=== PATIENT | male | born 1950 | race Caucasian/White ===

== ENCOUNTER 2017-05-27 07:46 | Emergency (ER) | payer BC ==
[~2017-05-27] VITALS: Ht 182.9 cm; Wt 102.2 kg
[2017-05-27 08:43] VITALS: BP 138/97
== END 2017-05-27 08:43 | disposition home or self-care (01) ==
LOC: ED 07:46
DX: I48.91 Unspecified atrial fibrillation (principal); I11.0 Hypertensive heart disease with heart failure; I50.9 Heart failure, unspecified; Z88.0 Allergy status to penicillin; Z88.5 Allergy status to narcotic agent

== ENCOUNTER 2019-03-13 23:44 | Emergency (ER) | payer BC ==
[~2019-03-13] VITALS: Ht 182.9 cm; Wt 113.9 kg
[2019-03-13 23:49] VITALS: Ht 182.9 cm; Wt 113.9 kg
[2019-03-14 00:48] LABS: PLATELET COUNT 121 x10^3mcL (130-400); RED CELL DISTRIBUTION WIDTH 14.7 % (11.5-14.5)
[2019-03-14 01:00] LABS: BAND NEUTROPHIL 2 % (0-10); CALCIUM 8.5 mg/dL (8.5-10.1); CARBON DIOXIDE 28.7 mmol/L (21-32); CHLORIDE SERUM 98 mmol/L (98-107); CREATININE SERUM 1.2 mg/dL (0.7-1.3); GFR1 > 60 mL/min; GLUCOSE SERUM 133 mg/dL (74-106); MONOCYTE 28 % (0-7); POTASSIUM SERUM 4.2 mmol/L (3.5-5.1); SEGMENTED NEUTROPHILS 58 % (37-75); SODIUM SERUM 135 mmol/L (136-145)
[2019-03-14 01:03] LABS: ALKALINE PHOSPHATASE 413 U/L (46-116); ALT/SGPT 74 U/L (16-63); AST/SGOT 37 U/L (15-37); BILIRUBIN TOTAL 0.7 mg/dL (0.20-1.00); PLATELET MORPHOLOGY PLATELETS DECREASED; ovalocyte/elliptocyte 1+; rbc morphology (normal/abnorm) ABNORMAL (NORMAL); schistocyte (helmet cell) 1+
[2019-03-14 01:04] LABS: ALBUMIN 3.2 g/dL (3.4-5.0); TOTAL PROTEIN, SERUM 5.6 g/dL (6.4-8.2)
[2019-03-14 03:28] VITALS: BP 116/50
[2019-03-14] MEDS ORDERED: FUROSEMIDE80 MG PO (23:22)
[2019-03-14] MEDS ORDERED: CHILDREN'S5 MG/5 M1 (23:22)
[2019-03-14] MEDS ORDERED: ALDACTONE25 MG PO (23:23)
[2019-03-14] MEDS ORDERED: OMEPRAZOLE20 M3 PO (23:23)
[2019-03-14] MEDS ORDERED: ALTACE5 MG PO (23:23)
[2019-03-14] MEDS ORDERED: ELIQUIS2.5 MG PO (23:24)
[2019-03-14] MEDS ORDERED: DYMISTA (23:24)
[2019-03-14] MEDS ORDERED: CARVEDILOL6.25 M1 PO (23:24)
== END 2019-03-14 03:28 | disposition home or self-care (01) ==
LOC: ED 23:44
PROVIDERS: Emergency Medicine
DX: G47.30 Sleep apnea, unspecified (principal); I11.0 Hypertensive heart disease with heart failure; I50.9 Heart failure, unspecified; Z88.0 Allergy status to penicillin; Z88.5 Allergy status to narcotic agent
CPT/HCPCS: 36415; 83880; 85378; Q0092; Q9967

== ENCOUNTER 2019-03-14 21:38 | Inpatient (IN) | payer BC ==
[~2019-03-14] VITALS: Ht 182.9 cm; Wt 96.4 kg
[2019-03-14 21:43] VITALS: Ht 182.9 cm; Wt 96.4 kg
--- NOTE | 2019-03-14 21:47 | NUR ---
PT PRESENTS TO ER TODAY WITH C/O OF SOB THAT STARTED APPROX 2 WEEKS AGO. PT IS NO REPORTING SOB AT THIS TIME BUT STATES THAT HE FEELS SHORT OF BREATH WHEN HE TRIES TO GO TO SLEEP. EXPIRATORY WHEEZES HEARD BILATERALLY WITH AUSCULTATION OF THE LUNGS. PT ALSO REPORTING GENERALIZED ABD PAIN THAT, PT STATES THAT PAIN IS CHRONIC DUE TO HIS GASTRITIS. PT DENIES ANY N/V/D. PT DENIES ANY CP. PT IS A/O X4. RESP ARE EQUAL AND UNLABORED. NO ACUTE DISTRESS NOTED.
[2019-03-14 22:16] LABS: CALCIUM 8.5 mg/dL (8.5-10.1); CARBON DIOXIDE 26.5 mmol/L (21-32); CHLORIDE SERUM 95 mmol/L (98-107); CREATININE SERUM 1.1 mg/dL (0.7-1.3); GFR1 > 60 mL/min; GLUCOSE SERUM 108 mg/dL (74-106); POTASSIUM SERUM 4.3 mmol/L (3.5-5.1); SODIUM SERUM 131 mmol/L (136-145)
[2019-03-14 22:21] LABS: ALKALINE PHOSPHATASE 423 U/L (46-116); ALT/SGPT 63 U/L (16-63); AST/SGOT 28 U/L (15-37); BILIRUBIN TOTAL 0.92 mg/dL (0.20-1.00); PLATELET COUNT 137 x10^3mcL (130-400)
[2019-03-14 22:23] LABS: ALBUMIN 3.3 g/dL (3.4-5.0); TOTAL PROTEIN, SERUM 5.8 g/dL (6.4-8.2)
[2019-03-14 22:31] LABS: BAND NEUTROPHIL 1 % (0-10); MONOCYTE 28 % (0-7); SEGMENTED NEUTROPHILS 54 % (37-75)
[2019-03-14 22:33] LABS: ovalocyte/elliptocyte 1+; rbc morphology (normal/abnorm) ABNORMAL (NORMAL); schistocyte (helmet cell) 1+
[2019-03-14 22:34] LABS: PLATELET MORPHOLOGY PLATELETS DECREASED
[2019-03-14] MEDS ORDERED: FUROSEMIDE80 MG PO (23:22)
[2019-03-14] MEDS ORDERED: CHILDREN'S5 MG/5 M1 (23:22)
[2019-03-14] MEDS ORDERED: OMEPRAZOLE20 M3 PO (23:23)
[2019-03-14] MEDS ORDERED: ALDACTONE25 MG PO (23:23)
[2019-03-14] MEDS ORDERED: ALTACE5 MG PO (23:23)
[2019-03-14] MEDS ORDERED: CARVEDILOL6.25 M1 PO (23:24)
[2019-03-14] MEDS ORDERED: ELIQUIS2.5 MG PO (23:24)
[2019-03-14] MEDS ORDERED: DYMISTA (23:24)
[2019-03-14 23:50] VITALS: BP 115/62
--- NOTE | 2019-03-14 23:57 | NUR ---
RECEIVED PT FROM ER VIA ASTRID ACCOMPANIED WITH NURSE AND EMT, PT SEEN, ALERT AND ORIENTED, DENIES HEADACHE OR DIZZINESS, BREATHING EVEN AND UNLABORED, LUNG SOUNDS DIMINISHED, ON O2 2L VIA NC WITH NO RESP DISTRESS NOTED, SPO2:95% ON O2 2L VIA NC, ON TELE#14 A-FIB, DENIES CHEST PAIN, PULSES PALPABLE, EDEMA NOTED TO BLE, MILD GENERALIZED WEAKNESS, AMBULATORY WITH MINIMAL ASSIST, ABD SOFT WITH ACTIVE BS, NO BM AT THIS TIME, VOIDING FREELY, PRIMARY NURSE ELICIA AT BEDSIDE, NO DISTRESS NOTED, WILL KEEP TO MONITOR.
[2019-03-15 01:25] VITALS: BP 115/62
--- NOTE | 2019-03-15 04:28 | NUR ---
DISCHARGE OF PT DONE BY MYSELF EZIO BOLDEN.
[2019-03-15 05:43] VITALS: BP 113/63
--- NOTE | 2019-03-15 06:43 | NUR ---
PT ABLE TO REST IN BED THROUGHOUT THE SHIFT. EVEN AND UNLABORED RESPIRATION NOTED ON RA AND ON/OFF 2LNC. DRY COUGH NOTED. ON TELE# 14 READING AFIB AT 94BPM. IVL PATENT AND INTACT. ALL NEEDS TENDED TO AND MET. ALL SCHEDULED MEDICATIONS GIVEN. BED IN LOWEST POSITION. SIDE RAILS UPX2. CALL LIGHT WITHIN REACH. WILL ENDORSE TO ONCOMING SHIFT.
--- NOTE | 2019-03-15 07:12 | NUR ---
RECEIVED PT FROM METAL WORKER NURSE. PT SITTING UPRIGHT IN BED, AOX4, RESP E/U ON RA. DRY HACKING COUGH NOTED, PT DENIES CHEST PAIN OR SOB AT THIS TIME. ON TELE 14 SHOWING A-FIB, HR: 97. SALINE LOCKED TO RFA W/ NO ERYTHEMA OR EDEMA. BED IN LOWEST POSITION AND CALL LIGHT WITHIN REACH. WILL CONTINUE TO MONITOR.
[2019-03-15 07:28] LABS: PLATELET COUNT 125 x10^3mcL (130-400); RED CELL DISTRIBUTION WIDTH 14.6 % (11.5-14.5)
[2019-03-15 07:51] VITALS: BP 119/61
[2019-03-15 07:54] LABS: CALCIUM 8.3 mg/dL (8.5-10.1); CARBON DIOXIDE 30.3 mmol/L (21-32); CHLORIDE SERUM 97 mmol/L (98-107); GFR1 > 60 mL/min; GLUCOSE SERUM 108 mg/dL (74-106); POTASSIUM SERUM 4.2 mmol/L (3.5-5.1); SODIUM SERUM 135 mmol/L (136-145)
--- NOTE | 2019-03-15 12:33 | NUR ---
PT DC'D TO HOME. IV DC'D. TELE RETURNED TO TELE STATION. PRESCRIPTION GIVEN FOR RESTORIL AND ATIVAN. PT TO CALL PCP FOR F/U DONOVAN. ALL DC INSTRUCTIONS REVIEWED WITH AND SIGNED BY PT.
[2019-03-15 15:00] LABS: BAND NEUTROPHIL 13 % (0-10); MONOCYTE 27 % (0-7)
[2019-03-15 15:01] LABS: METAMYELOCTE 1 % (0-2); SEGMENTED NEUTROPHILS 42 % (37-75)
[2019-03-15 15:02] LABS: burr cell (echinocyte) 1+; rbc morphology (normal/abnorm) ABNORMAL (NORMAL)
[2019-03-15 15:03] LABS: PLATELET MORPHOLOGY PLATELETS DECREASED; ovalocyte/elliptocyte 1+
== END 2019-03-15 12:25 | disposition home or self-care (01) | DRG 155 ==
LOC: ED 21:38 → DU 23:17
PROVIDERS: Emergency Medicine; Internal Medicine Nephrology; ADMIT Internal Medicine Pulmonary Disease
DX: G47.30 Sleep apnea, unspecified (principal); C85.90 Non-Hodgkin lymphoma, unspecified, unspecified site; I48.91 Unspecified atrial fibrillation; F06.4 Anxiety disorder due to known physiological condition; Z79.01 Long term (current) use of anticoagulants; Z68.31 Body mass index [BMI] 31.0-31.9, adult; G47.00 Insomnia, unspecified
CPT/HCPCS: 36600; 83880; G0378; J3490; Q0092

== ENCOUNTER 2019-03-15 21:58 | Emergency (ER) | payer BC ==
[~2019-03-15] VITALS: Ht 182.9 cm; Wt 103.0 kg
[~2019-03-15 21:58] MED LIST: ALDACTONE25 MG PO; ALTACE5 MG PO; CARVEDILOL6.25 M1 PO; CHILDREN'S5 MG/5 M1; DYMISTA; ELIQUIS2.5 MG PO; FUROSEMIDE80 MG PO; OMEPRAZOLE20 M3 PO
[2019-03-15 22:54] LABS: PLATELET COUNT 150 x10^3mcL (130-400)
[2019-03-15 23:03] LABS: CALCIUM 8.5 mg/dL (8.5-10.1); CARBON DIOXIDE 29.8 mmol/L (21-32); CHLORIDE SERUM 96 mmol/L (98-107); GFR1 > 60 mL/min; GLUCOSE SERUM 122 mg/dL (74-106); SODIUM SERUM 134 mmol/L (136-145)
[2019-03-15 23:07] LABS: ALKALINE PHOSPHATASE 387 U/L (46-116); ALT/SGPT 54 U/L (16-63); AST/SGOT 26 U/L (15-37); BILIRUBIN TOTAL 1.2 mg/dL (0.20-1.00)
[2019-03-15 23:08] LABS: ALBUMIN 3.3 g/dL (3.4-5.0); TOTAL PROTEIN, SERUM 5.8 g/dL (6.4-8.2)
[2019-03-15 23:10] LABS: RED CELL DISTRIBUTION WIDTH 14.8 % (11.5-14.5)
[2019-03-15 23:18] LABS: MONOCYTE 29 % (0-7); SEGMENTED NEUTROPHILS 60 % (37-75)
[2019-03-15 23:21] LABS: ovalocyte/elliptocyte 1+; rbc morphology (normal/abnorm) ABNORMAL (NORMAL); schistocyte (helmet cell) 1+
[2019-03-15 23:22] LABS: PLATELET MORPHOLOGY PLATELETS NORMAL
[2019-03-16 00:35] LABS: AMPHETAMINE QUAL UR NONE DETECTED (See below)
[2019-03-16 01:21] LABS: microscopic required? YES; urine erythrocyte TRACE (NEGATIVE)
[2019-03-16 03:03] VITALS: BP 132/66
== END 2019-03-16 03:03 | disposition home or self-care (01) ==
LOC: ED 21:58
PROVIDERS: Emergency Medicine
DX: I11.0 Hypertensive heart disease with heart failure (principal); I50.9 Heart failure, unspecified; I48.91 Unspecified atrial fibrillation
CPT/HCPCS: 36415; 83880; Q0092

== ENCOUNTER 2019-03-17 07:42 | Emergency (ER) | payer BC ==
[~2019-03-17] VITALS: Ht 182.9 cm; Wt 104.3 kg
[2019-03-17 07:52] VITALS: Ht 182.9 cm; Wt 104.3 kg
[2019-03-17 09:08] LABS: CALCIUM 8.8 mg/dL (8.5-10.1); CARBON DIOXIDE 26.1 mmol/L (21-32); CHLORIDE SERUM 94 mmol/L (98-107); CREATININE SERUM 1.2 mg/dL (0.7-1.3); GFR1 > 60 mL/min; GLUCOSE SERUM 147 mg/dL (74-106); POTASSIUM SERUM 3.6 mmol/L (3.5-5.1); SODIUM SERUM 131 mmol/L (136-145)
[2019-03-17 09:22] LABS: ALKALINE PHOSPHATASE 380 U/L (46-116); ALT/SGPT 41 U/L (16-63); AST/SGOT 19 U/L (15-37); TOTAL PROTEIN, SERUM 5.7 g/dL (6.4-8.2)
[2019-03-17 09:28] LABS: PLATELET COUNT 153 x10^3mcL (130-400); RED CELL DISTRIBUTION WIDTH 14.5 % (11.5-14.5)
[2019-03-17 09:30] LABS: BAND NEUTROPHIL 0 % (0-10); MONOCYTE 44 % (0-7); SEGMENTED NEUTROPHILS 52 % (37-75)
[2019-03-17 09:31] LABS: PLATELET MORPHOLOGY PLATELETS NORMAL; rbc morphology (normal/abnorm) ABNORMAL (NORMAL)
[2019-03-17 10:31] VITALS: BP 115/70
== END 2019-03-17 10:31 | disposition home or self-care (01) ==
LOC: ED 07:42
PROVIDERS: Emergency Medicine
DX: J40 Bronchitis, not specified as acute or chronic (principal); G47.30 Sleep apnea, unspecified; I11.0 Hypertensive heart disease with heart failure; I50.9 Heart failure, unspecified; I48.91 Unspecified atrial fibrillation; Z88.0 Allergy status to penicillin; Z88.5 Allergy status to narcotic agent
CPT/HCPCS: 36415; Q0092

== ENCOUNTER 2019-08-03 05:37 | Inpatient (IN) | payer BC ==
[~2019-08-03] VITALS: Ht 182.9 cm; Wt 94.3 kg
[2019-08-03 05:46] VITALS: Ht 182.9 cm; Wt 94.3 kg
--- NOTE | 2019-08-03 05:56 | NUR ---
PT PRESENTS TO ED WITH C/C BODY ACHES, CHILLS AND NAUSEA SINCE 1900 LAST NIGHT. PT DENIES VOMITING. DENIES TAKING MEDICATION FOR SYMPTOMS. PT HAS ACTIVE LYMPHOMA AND IS CURRENTLY BEING TREATED AT [facility]. IN OBVIOUS DISCOMFORT AND STS "OH IM SICK, IM REALLY SICK, HELP ME." NON PRODUCTIVE COUGH NOTED. PT IS AAOX4. RESP E/U. AT BEDSIDE. CONNECTED TO MONITOR. AWAITING MSE.
--- NOTE | 2019-08-03 06:02 | NUR ---
PT STS BP CUFF TO RIGHT ARM IS "HURTING ME TOO MUCH, TAKE IT OFF, TAKE IT OFF." BP CUFF REMOVED AT THIS TIME.
--- NOTE | 2019-08-03 06:17 | NUR ---
DR GANT AT BEDSIDE FOR MSE.
--- NOTE | 2019-08-03 06:18 | NUR ---
PT REPORTS HAVING LYMPNODES REMOVED FROM LEFT AUXILLARY. LIMB RESTRICTION PLACED.
--- NOTE | 2019-08-03 06:43 | NUR ---
NM HR 80-110. DR GANT AWARE. CARDIZEM TO BE HELD AT THIS TIME.
--- NOTE | 2019-08-03 06:47 | NUR ---
LAB AT BEDSIDE.
--- NOTE | 2019-08-03 07:02 | NUR ---
REPORT GIVEN TO EZIO HUSAIN TO ASSUME CARE.
--- NOTE | 2019-08-03 07:02 | NUR ---
REPORT RECEIVED FROM JACOB HOLGUIN.
--- NOTE | 2019-08-03 07:12 | NUR ---
RECEIVED PT IN ED ASTRID, ON FULL CM. RESPS E/U, DENIES CP AND SOB. IV TO RIGHT AC + BLOOD RETURN, NO S/S OF INFILTRATION OR REDNESS, FLUSHED WITH 10 CC OF NS. GIRLFRIEND AT BEDSIDE. PT IN POSITION OF COMFORT, BILAT SIDERAILS UP FOR SAFETY, CALL LIGHT WITHIN REACH.
[2019-08-03 07:23] LABS: microscopic required? YES; urine erythrocyte TRACE (NEGATIVE)
[2019-08-03 07:32] LABS: PLATELET COUNT 145 x10^3mcL (130-400)
[2019-08-03 07:33] LABS: RED CELL DISTRIBUTION WIDTH 15.5 % (11.5-14.5)
--- NOTE | 2019-08-03 07:35 | NUR ---
PT'S HR N OTED TO BE UNCONTROLLED BETWEEN 98-130, DR GANT MADE AWARE, STS OK TO GIVE CARDIZEM 10MG IVP. PT MEDICATED PER VERBAL ORDERS OF DR GANT. PT ON FULL CM. BEGAN TO CRY UPON OBTAINING BP. BP REMOVED FOR COMFORT. VSS AT THIS TIME.
--- NOTE | 2019-08-03 07:39 | NUR ---
PT ASSITED WITH URINAL.
[2019-08-03 07:49] LABS: CALCIUM 8.2 mg/dL (8.5-10.1); CARBON DIOXIDE 25.2 mmol/L (21-32); CHLORIDE SERUM 97 mmol/L (98-107); GLUCOSE SERUM 98 mg/dL (74-106); POTASSIUM SERUM 3.8 mmol/L (3.5-5.1); SODIUM SERUM 133 mmol/L (136-145)
--- NOTE | 2019-08-03 07:50 | NUR ---
APPROX 200CC OF CLEAR BELKIS URINE NOTED IN URINE. PT RETURNED TO JordanELWIN, NAD NOTED, RESPS E/U, HR ON CM IS 96 AT THIS TIME. PT IN POSITION OF COMFORT, CALL LIGHT WITHIN REACH, "GIRLFRIEND" AT BEDSIDE.
[2019-08-03 07:54] LABS: ALBUMIN 3.5 g/dL (3.4-5.0); ALKALINE PHOSPHATASE 153 U/L (46-116); ALT/SGPT 34 U/L (16-63); AST/SGOT 19 U/L (15-37); BILIRUBIN TOTAL 0.71 mg/dL (0.20-1.00)
[2019-08-03 07:58] LABS: TOTAL PROTEIN, SERUM 5.9 g/dL (6.4-8.2)
[2019-08-03] MEDS ORDERED: IMBRUVICA140 M1 PO (07:59)
[2019-08-03] MEDS ORDERED: MECLIZINE HYDRO25 M1 PO (08:00)
--- NOTE | 2019-08-03 08:00 | NUR ---
DR GANT AT BEDSIDE TO DISCUSS POC WITH PT AND GIRLFRIEND.
[2019-08-03] MEDS ORDERED: ONDANSETRON ODT8 M1 PO (08:01)
[2019-08-03] MEDS ORDERED: FLOMAX0.4 MG PO (08:02)
[2019-08-03] MEDS ORDERED: ALTACE5 MG PO (08:02)
[2019-08-03] MEDS ORDERED: PENTOXIFYL XR400 M1 PO (08:03)
[2019-08-03] MEDS ORDERED: PERCOCET1 TA5 PO (08:04)
[2019-08-03] MEDS ORDERED: OXYCONTIN20 M1 PO (08:05)
[2019-08-03] MEDS ORDERED: COLACE100 MG PO (08:05)
[2019-08-03] MEDS ORDERED: MIRALAX17 GM (08:06)
[2019-08-03] MEDS ORDERED: MP (08:07)
--- NOTE | 2019-08-03 08:35 | NUR ---
REPORT GIVEN TO HEMANTH HOLGUIN TO ASSUME CARE OF PT.
--- NOTE | 2019-08-03 09:00 | NUR ---
RECEIVED PATIENT FROM ER NURSE VIA ASTRID, PATIENT A&O X4, IV ON RAC PATENT AND INTACT NO REDNESS OR EDEMA NOTED. ON 2L NC SP 02 97% PER PATIENT REQUSET NOT TO WEAR 02 ON RA 95% OK NOT TO WEAR FOR NOW WILL CONTINUE TO MONITOR. DENIES SOB AT THIS TIME. CHEST RISE EQUAL AND UNLABORED. WHEEZES HEARD IN LUNGS BILAT. DRY SKIN NOTED AND SCABS ON ARMS. GAIT AND BALANCE IS STEADY. ASSESSMENT COMPLETE AND DOCUMENTED. GIRLFRIEND AT BEDSIDE. BED IN LOWEST POSITION AND CALL LIGHT WITHIN REACH. WILL CONTINUE TO MONITOR.
[2019-08-03 09:11] VITALS: BP 129/67
[2019-08-03 09:33] LABS: SEGMENTED NEUTROPHILS 28 % (37-75)
[2019-08-03 09:34] LABS: ATYPICAL LYMPH 0 %; BAND NEUTROPHIL 4 % (0-10); BASOPHIL 0 % (0-2); MONOCYTE 52 % (0-7)
[2019-08-03 09:35] LABS: rbc morphology (normal/abnorm) ABNORMAL (NORMAL)
[2019-08-03 09:36] LABS: PLATELET MORPHOLOGY PLATELETS DECREASED; ovalocyte/elliptocyte 1+
--- NOTE | 2019-08-03 10:59 | NUR ---
PATIENT C/O 8/10 PAIN GENERALIZED ADMINISTERED MORPHINE IVP FOR MODERATE PAIN PATIENT TOLERATED WELL NO ADVERSE REACTIONS NOTED. WILL REASSESS PAIN . DIMMED LIGHTS FOR COMFORT AND POSITIONED WITH PILLOWS. BED IN LOWEST POSITION CALL LIGHT WITHIN REACH. ALL NEEDS ATTENDED TO AT THIS TIME.
--- NOTE | 2019-08-03 12:47 | NUR ---
ADMINISTERED SCHEDULED MEDS PATIENT TOLERATED WELL NO ADVERSE REACTIONS NOTED. PATIENT DENIES PAIN AT THIS TIME. ALL QUESTIONS AND CONCERNS ADDRESSED AT THIS TIME. BED IN LOWEST POSITION CALL LIGHT WITHIN REACH. WILL CONTINUE TO MONITOR.
--- NOTE | 2019-08-03 14:01 | NUR ---
PATIENT SITTING UP AT EDGE OF BED DENIES PAIN AT THIS TIME. NO S/S OF RESPIRATORY DISTRESS NOTED. ALL NEEDS ATTENDED TO AT THIS TIME. BED IN LOWEST POSITION CALL LIGHT WITHIN REACH. WILL CONTINUE TO MONITOR.
[2019-08-03 15:07] VITALS: BP 98/67
--- NOTE | 2019-08-03 16:02 | NUR ---
IV TUGGED OUT DRESSING APPLIED CATHETER INTACT NO REDNESS OR EDEMA NOTED. INSERTED NEW IV 1 ATTEMPT PATIENT TOLERATED WELL IN RUE 22G NO REDNESS OR EDEMA PATENT AND INTACT. ALL NEEDS ATTENDED TO AT THIS TIME. BED IN LOWEST POSITON CALL LIGHT WITHIN REACH. WILL CONTINUE TO MONITOR.
[2019-08-03 17:52] VITALS: BP 109/58
--- NOTE | 2019-08-03 18:40 | NUR ---
PATIENT SITTING UP AT THE EDGE OG BED TALKING WITH GIRLFRIEND. PATIENT DENIES ANY PAIN AT THIS TIME. IV ON RUE PATENT AND INFUSING NO REDNESS OR EDEMA NOTED. PATIENT DENIES SOB ON 2L NC 96%. ALL QUESTIONS AND CONCERNS ADDRESSED AT THIS TIME. BED INLOWEST POSITION CALL LIGHT WITHIN REACH. WILL ENDORSE CARE TO CERTIFIED INDOOR ENVIRONMENTALIST NURSE.
--- NOTE | 2019-08-03 19:40 | NUR ---
RECEIVED PATIENT IN BED AWAKE, ALERT AND ORIENTED WITH NO C/O PAIN AND DISCOMFORT. BREATHING EASY AND NONLABOR SATTING AT 98% 0N O2 AT 2L VIA NC. TELE#12 AFIB ON MONITOR, DENIES CHESTPAIN. EDEMA NOTED TO BLE AND BUE.IV TO RUE INTACT AND INFUSING WELL. WILL CONTINUE TO MONITOR. FAMILY MEMBERS AT BEDSIDE.
[2019-08-03 20:45] VITALS: BP 130/64
--- NOTE | 2019-08-03 21:15 | NUR ---
C/O GENERALIZED BODY PAIN AT SCALE OF 8/10 PER PATIENT, MORPHINE 1MG IVP GIVEN PRESCRIBED. WILL CONTINUE TO MONITOR.
--- NOTE | 2019-08-03 22:45 | NUR ---
PATIENT DECLINED CPAP. STATED THAT HE ONLY PREFERS TO USE HIS HOME MACHINE. ADVISED PATIENT THAT HE CAN CALL NURSING IF CHOOSES TO USE AND RT WILL ASSIST.
--- NOTE | 2019-08-03 23:48 | NUR ---
RELIEF NOTED PER PATIENT AFTER PAIN MEDS WAS GIVEN. WILL CONTINUE TO MONITOR.
--- NOTE | 2019-08-04 05:22 | NUR ---
SLEPT FAIRLY, C/O BODY PAIN X2 THE ENTIRE SHIFT AND MEDICATED PRESCRIBED. ALL NEEDS ATTENDED.
[2019-08-04 05:40] VITALS: BP 108/61
[2019-08-04 06:51] LABS: CALCIUM 8.6 mg/dL (8.5-10.1); CARBON DIOXIDE 27.3 mmol/L (21-32); CHLORIDE SERUM 100 mmol/L (98-107); GLUCOSE SERUM 96 mg/dL (74-106); SODIUM SERUM 136 mmol/L (136-145)
[2019-08-04 07:00] LABS: PLATELET COUNT 141 x10^3mcL (130-400)
[2019-08-04 07:24] LABS: RED CELL DISTRIBUTION WIDTH 15.3 % (11.5-14.5)
--- NOTE | 2019-08-04 07:50 | NUR ---
RECEIVED PT IN BED. ASSESSED AND DOCUMENTED. DENIES ANY PAIN. STABLE. SAFTEY PRECAUTIONS ARE IN PLACE. WILL MONITOR.
[2019-08-04 08:53] LABS: ATYPICAL LYMPH 0 %; BAND NEUTROPHIL 8 % (0-10); BASOPHIL 0 % (0-2); MONOCYTE 40 % (0-7); SEGMENTED NEUTROPHILS 24 % (37-75)
[2019-08-04 08:54] LABS: ovalocyte/elliptocyte 2+; rbc morphology (normal/abnorm) ABNORMAL (NORMAL)
[2019-08-04 09:14] VITALS: BP 110/61
--- NOTE | 2019-08-04 10:00 | NUR ---
DENIES ANY PAIN, OXYCONTIN GIVEN SCHEDULED FOR CHRONIC PAIN MANAGEMENT. KATHY BURGOS AWARE ABOUT WBC=1.9 AND ALL OTHER LABS. NO NEW ORDER RECEIVED. PT IS STABLE.
--- NOTE | 2019-08-04 13:00 | NUR ---
PT REMIANS STABLE. EATING LUNCH. DENIES ANY PAIN THIS TIME.
[2019-08-04 13:13] VITALS: BP 97/53
--- NOTE | 2019-08-04 14:00 | NUR ---
PT AMBULATED IN THE HALLWAY WELL, NO DISTRESS NOTED. STABLE.
--- NOTE | 2019-08-04 16:00 | NUR ---
PT RESTING IN BED COMFORTABLY. STABLE.
[2019-08-04 17:09] VITALS: BP 143/71
--- NOTE | 2019-08-04 18:42 | NUR ---
PT SAID HE IS FEELING NAUSEA AND REQUESTING FOR ZOFRAN, NO ORDER SEEN, INFORMED AND GOT ORDER AND GIVEN. PT IS STABLE. V/S STABLE.
--- NOTE | 2019-08-04 19:05 | NUR ---
PT RESTING IN BED COMFORTABLY. DENIES ANY PAIN. NAUSEA IS BETTER. FAMILY AT BEDSIDE. STABLE. GAVE REPORT TO WORKERS COMPENSATION PARALEGAL.
--- NOTE | 2019-08-04 19:24 | NUR ---
P.T. NOTES P.T. EVAL COMPLETED; PATIENT MAY AMBULATE W/ NURSE AD DELANO; O2 SAT ROOM AIR=97%
--- NOTE | 2019-08-04 19:41 | NUR ---
RECEIVED PATIENT IN BED AWAKE SITING AT BEDSIDE WITH . NO SIGN OF ACUTE DISTRESS NOTED. TELE #12 AFIB ON MONITOR, DENIES CHEST DISCOMFORT. BREATHING EASY AND NONLABOR SATTING AT 96% ON O2 AT 2L VIA NC. EDEMA NOTED TO BUE AND BLE, PATIENT ON ELIQUIZ PO SCHEDULED IN AM. IV TO RUE INTACT AND INFUSING WELL. WILL CONTINUE MONITOR.
[2019-08-04 22:00] VITALS: BP 104/30
--- NOTE | 2019-08-04 23:55 | NUR ---
APPEAR TO BE SLSEEPING THIS TIME BREATHING EASYA ND NONLABOR. WILL CONTINUE TO MONITOR.
--- NOTE | 2019-08-05 04:20 | NUR ---
AWAKE THIS TIME C/O BODY PAIN AT SCALE OF 8/10, TORADOL 15MG IVP GIVEN PRESCRIBED. WILL CONTINUE TO MONITOR.
[2019-08-05 05:08] VITALS: BP 124/52
--- NOTE | 2019-08-05 05:13 | NUR ---
SLEPT AT LONG INTERVALS C/O BODY PAIN X1 THE ENTIRE SHIFT AND MEDICATED PRESCRIBED. ALL NEEDS ATTENDED.
[2019-08-05 06:21] LABS: PLATELET COUNT 142 x10^3mcL (130-400)
[2019-08-05 06:30] LABS: CALCIUM 8.6 mg/dL (8.5-10.1); CARBON DIOXIDE 25.3 mmol/L (21-32); CHLORIDE SERUM 101 mmol/L (98-107); CREATININE SERUM 0.9 mg/dL (0.7-1.3); GLUCOSE SERUM 104 mg/dL (74-106); POTASSIUM SERUM 3.6 mmol/L (3.5-5.1); SODIUM SERUM 136 mmol/L (136-145)
--- NOTE | 2019-08-05 07:20 | NUR ---
RECEIVED PT FROM V BELT MOLD ASSEMBLER AND CURER EZIO. Neil/DONNELL. TELE#12. DENIES CHEST PAIN/PRESSURE. RESPIRATIONS EQUAL AND UNLABORED ON RA. DENIES SOB. PT C/O NASAL CONGESTION. PT ASKING FOR SOMETHING FOR CONGESTION. PT AKSING FOR BREATHING TREATMENT. RESPIRATORY THERAPY CALLED. PT C/O GENERALIZED MALAISE AND PAIN. PT DENIES ANY N/V. IV TO RUE PATENT AND INFUSING. NO REDNESS OR SWELLING NOTED. WILL CONTINUE TO MONITOR. CALL LIGHT IN REACH. BED IN LOWEST POSITION.
[2019-08-05 07:46] LABS: RED CELL DISTRIBUTION WIDTH 15.1 % (11.5-14.5)
--- NOTE | 2019-08-05 08:11 | NUR ---
PT TAKEN OFF FLOOR FOR CT OF CHEST. INGOT CAR OPERATOR JOBY NOTIFIED.
[2019-08-05 09:07] LABS: BAND NEUTROPHIL 2 % (0-10)
[2019-08-05 09:08] LABS: ATYPICAL LYMPH 0 %; BASOPHIL 0 % (0-2); PLATELET MORPHOLOGY PLATELETS DECREASED; rbc morphology (normal/abnorm) ABNORMAL (NORMAL)
--- NOTE | 2019-08-05 09:15 | NUR ---
PT IN BED SLEEPING, DROWSY BUT AROUSABLE TO TOUCH. ATTEMPTED TO GIVE PT PO MEDS. PT UPSET YELLING BUT EASILY FALLS BACK ASLEEP. WHEN ASKED WHERE PT IS HE STATES HES IN [place]. PT FINALLY SITTING UP AT BEDSIDE. PT FALLING IN AND OUT OF SLEEP. GIVEN PO MEDS. TOLERATED WELL. IV TO RAC PATENT AND INFUSING. NO REDNESS OR SWELLING NOTED. VISITOR AT BEDSIDE. WILL CONTINUE TO MONITOR. CALL LIGHT IN REACH. BED IN LOWEST POSITION.
[2019-08-05 09:34] VITALS: BP 141/75
[2019-08-05 13:24] VITALS: BP 119/59
[2019-08-05 16:29] VITALS: BP 114/70
--- NOTE | 2019-08-05 17:59 | NUR ---
PT SITTING UP AT BEDSIDE. NO ACUTE RESP DISTRESS NOTED ON RA. PT C/O GENERALIZED BODY PAIN 06/11. PT STATES HIS PAIN HAS NOT BEEN CONTROLLED SINCE HES BEEN HERE. EXPLAINED TO PT MORPHINE IS NOT DUE YET, OFFERED PT TORADOL. PT AGREEABLE. IV SALINE LOCKED. FLUSHED WELL. NO REDNESS OR SWELLING NOTED. WILL CONTINUE TO MONITOR. CALL LIGHT IN REACH. BED IN LOWEST POSITION.
--- NOTE | 2019-08-05 19:28 | NUR ---
PT RECIEVED AAO SITTING ON THE BED,REG RESP NO SOB V/S STABLE,ABDO IS SOFT WITH ACTIVE BOWEL SOUNDS,PT WITH BLE EDEMA WITH PALPABLE PULSES,PT ON TELE MONITOR AND IN AFIB NO CHEST PAIN REPORTED AT THIS TIME,KEPT CLEAN AN DRY TO TOUCH,PT AMBUALTES INTHE HALLWAY,CALL LIGHT EASY REACHED AND WILL CONTINUE TO MONITOR.
[2019-08-05 21:17] VITALS: BP 114/78
--- NOTE | 2019-08-06 04:00 | NUR ---
PT SLEEPING SOUNDLY AT THIS TIME SND WILL CONTINUE TO MONITOR.
[2019-08-06 05:43] VITALS: BP 130/63
[2019-08-06 06:20] LABS: PLATELET COUNT 149 x10^3mcL (130-400)
[2019-08-06 06:31] LABS: CALCIUM 8.5 mg/dL (8.5-10.1); CARBON DIOXIDE 26.4 mmol/L (21-32); CHLORIDE SERUM 103 mmol/L (98-107); CREATININE SERUM 0.8 mg/dL (0.7-1.3); GLUCOSE SERUM 131 mg/dL (74-106); POTASSIUM SERUM 4.5 mmol/L (3.5-5.1); SODIUM SERUM 138 mmol/L (136-145)
--- NOTE | 2019-08-06 06:31 | NUR ---
PT HAD A RESTING NIGHT NO CHANGE AT THIS TIME,WILL CONTINUE TO MONITOR.
[2019-08-06 06:43] LABS: RED CELL DISTRIBUTION WIDTH 15.1 % (11.5-14.5)
--- NOTE | 2019-08-06 07:10 | NUR ---
RECEIVED PATIENT BY EZIO GILLESPIE, AOX4, TELE 12 AFIB , + PULSES, EDEMA ON ALL EXTREMITIES, CRACKLES ON ALL LUNG CEHN, + BS, LAST BM 08/05/19, VOID WITH NO DYSURIA, AMBULATES, SCABS PRESENT ON EXTREMITIES WITH DISCOLORATIONS NOTED, GENERALIZED PAIN NOTED WITH PS 9/10, IV INTACT AND PATENT, SL AT RUE, NO REDNESS OR INFILTRATION. CALL LIGHT WITHIN REACH. BED AT LOWEST POSITION.
[2019-08-06] MEDS ORDERED: LEVAQUIN750 MG PO (08:48)
[2019-08-06] MEDS ORDERED: MEDDP PO (08:49)
--- NOTE | 2019-08-06 09:15 | NUR ---
SEEN PATIENT AOX4, NOT IN DISTRESS, CRACKLES ON ALL LUNG CHEN, ON ROOM AIR. NO PAIN, PO MEDICATIONS GIVEN. BP 141/70, HR 96. LEVAQUIN IVPB INFUSING. NO REDNESS OR INFILTRATION. CALL LIGHT WITHIN REACH. BED AT LOWEST POSITION.
[2019-08-06 09:16] VITALS: BP 141/70
[2019-08-06 09:55] VITALS: BP 141/70
--- NOTE | 2019-08-06 10:00 | NUR ---
PATIENT DISCHARGE INSTRUCTIONS GIVEN. EMPHASIZED TO HAVE FF UP APPOINTMENT WITH DR MONGE, AND HAVE HIS MEDICATION TAKEN FROM PREFERRED PHARMACY. DISCHARGE TEACHING GIVEN ON CHRONIC BRONCHITIS.
[2019-08-06 10:28] LABS: MONOCYTE 24 % (0-7)
--- NOTE | 2019-08-06 10:57 | NUR ---
PATIENT IV DISCONTINUED, CATHETER INTACT. NO REDNESS OR INFILTRATION. PATIENT PREFERRED TO WALK FOR DISCHARGE. PATIENT DISCHARGED. ACCOMPANIED BY MELANI WIGGINS. .
[2019-08-06 11:41] LABS: BAND NEUTROPHIL 1 % (0-10); MONOCYTE 20 % (0-7); SEGMENTED NEUTROPHILS 43 % (37-75)
[2019-08-06 11:42] LABS: rbc morphology (normal/abnorm) ABNORMAL (NORMAL)
[2019-08-07 14:41] LABS: SEGMENTED NEUTROPHILS 38 % (37-75)
== END 2019-08-06 10:58 | disposition home or self-care (01) | DRG 177 ==
LOC: ED 05:37 → DU 08:16
PROVIDERS: Emergency Medicine; Internal Medicine; ADMIT Internal Medicine
DX: J69.0 Pneumonitis due to inhalation of food and vomit (principal); J96.01 Acute respiratory failure with hypoxia; N17.0 Acute kidney failure with tubular necrosis; C85.90 Non-Hodgkin lymphoma, unspecified, unspecified site; G89.29 Other chronic pain; E86.0 Dehydration; I48.91 Unspecified atrial fibrillation; D72.819 Decreased white blood cell count, unspecified; R73.03 Prediabetes; D63.0 Anemia in neoplastic disease; Z68.28 Body mass index [BMI] 28.0-28.9, adult; Z79.01 Long term (current) use of anticoagulants
CPT/HCPCS: 94150; C9113; G0378; J0132; J0456; J0780; J1200; J1885; J1956; J2270; J2405; J2920; J3010; J3490; J7030; J7620; Q0092

== ENCOUNTER 2019-11-18 02:25 | Emergency (ER) | payer BC ==
[~2019-11-18] VITALS: Ht 182.9 cm; Wt 97.5 kg
[~2019-11-18 02:25] MED LIST changes: +COLACE100 MG PO; +FLOMAX0.4 MG PO; +IMBRUVICA140 M1 PO; +LEVAQUIN750 MG PO; +MECLIZINE HYDRO25 M1 PO; +MEDDP PO; +MIRALAX17 GM; +MP; +ONDANSETRON ODT8 M1 PO; +OXYCONTIN20 M1 PO; +PENTOXIFYL XR400 M1 PO; +PERCOCET1 TA5 PO
[2019-11-18 02:33] VITALS: Ht 182.9 cm; Wt 97.5 kg
[2019-11-18] MEDS ORDERED: ALD25 PO (03:09)
[2019-11-18 03:28] LABS: BASOPHIL % 0.8 % (0-2)
[2019-11-18 03:34] LABS: microscopic required? YES; urine erythrocyte TRACE (NEGATIVE)
[2019-11-18 03:53] LABS: PLATELET COUNT 97 x10^3mcL (130-400); RED CELL DISTRIBUTION WIDTH 19.4 % (11.5-14.5)
[2019-11-18 04:12] LABS: CALCIUM 8.8 mg/dL (8.5-10.1); CARBON DIOXIDE 29.7 mmol/L (21-32); CHLORIDE SERUM 95 mmol/L (98-107); CREATININE SERUM 1.1 mg/dL (0.7-1.3); GLUCOSE SERUM 98 mg/dL (74-106); POTASSIUM SERUM 4.3 mmol/L (3.5-5.1); SODIUM SERUM 134 mmol/L (136-145)
[2019-11-18 04:16] LABS: ALBUMIN 3.6 g/dL (3.4-5.0); ALKALINE PHOSPHATASE 142 U/L (46-116); ALT/SGPT 31 U/L (16-63); AST/SGOT 22 U/L (15-37); BILIRUBIN TOTAL 0.58 mg/dL (0.20-1.00); TOTAL PROTEIN, SERUM 6.5 g/dL (6.4-8.2)
[2019-11-18 06:06] VITALS: BP 105/53
== END 2019-11-18 06:06 | disposition home or self-care (01) ==
LOC: ED 02:25
PROVIDERS: Emergency Medicine
DX: R10.84 Generalized abdominal pain (principal); I48.91 Unspecified atrial fibrillation; I11.0 Hypertensive heart disease with heart failure; I50.9 Heart failure, unspecified; C85.90 Non-Hodgkin lymphoma, unspecified, unspecified site; R60.9 Edema, unspecified; Z88.0 Allergy status to penicillin; Z88.5 Allergy status to narcotic agent
CPT/HCPCS: J1940; J3010; J3490; Q0092